=== PATIENT | female | born 2000 | race American Indian/Alaskan Native ===

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

== ENCOUNTER 2020-02-09 15:06 | Emergency (ER) | payer OTHER ==
--- NOTE | 2020-02-09 15:56 | ED ---
General Adult HPI - General Chief complaint: Shortness of Breath Stated complaint: SOB Time Seen by Provider: 02/09/20 15:31 Source: patient Mode of arrival: ambulatory Limitations: no limitations - History of Present Illness Initial comments: Patient is a 19-year-old female, , 37 week presenting to emergency Department with chief complaint of shortness of breath. Patient states that she developed sudden onset of mild shortness of breath about one hour prior to arrival. States she was watching TV whenever she developed symptoms. This is a shortness of breath is not exacerbated with ambulation. Denies any lightheadedness, dizziness, headaches, one-sided weakness or paresthesias, coughing, chest pain. Denies unilateral leg swelling. Denies previous history of blood clots, cough, hemoptysis. Patient denies any vaginal discharge, bleeding, abdominal pain or cramping. Denies hematuria, hematochezia or melena. Patient states she has history of exercise-induced asthma, however states this does not feel like it. Denies any wheezing. She has no other complaints. - Related Data Home Medications Medication Instructions Recorded Confirmed Pnv No.95/Ferrous Fum/Folic AC 1 tab PO DAILY 03/26/18 11/07/18 [ Multivitamin Tablet] Ferrous Sulfate [Feosol] 325 mg PO DAILY 08/31/18 11/07/18 Previous Rx's Medication Instructions Recorded HYDROcodone/APAP 5-325MG [Wellman 2 each PO Q4HR PRN #36 tab 11/12/18 5-325] Ibuprofen [Motrin] 600 mg PO Q6HR PRN #40 tab 11/12/18 Iron Ag/C/B12/Ca/Suc.acid/Stom 1 each PO DAILY@1200 #30 tab 11/12/18 [Multigen] Allergies Allergy/AdvReac Type Severity Reaction Status Date / Time sulfamethoxazole Allergy Rash/Hives Verified 02/09/20 15:24 [From Bactrim] trimethoprim [From Bactrim] Allergy Rash/Hives Verified 02/09/20 15:24 Review of Systems ROS Statement: Those systems with pertinent positive or pertinent negative responses have been documented in the HPI. ROS Other: All systems not noted in ROS Statement are negative. Past Medical History Past Medical History: Asthma Additional Past Medical History / Comment(s): anemia History of Any Multi-Drug Resistant Organisms: None Reported Past Surgical History: Tonsillectomy Past Anesthesia/Blood Transfusion Reactions: No Reported Reaction Past Psychological History: No Psychological Hx Reported Smoking Status: Never smoker - Past Family History Father Family Medical History: Unable to Obtain Additional Family Medical History / Comment(s): pt adopted General Exam Limitations: no limitations General appearance: alert, in no apparent distress Head exam: Present: atraumatic, normocephalic, normal inspection Eye exam: Present: normal appearance, PERRL, EOMI Pupils: Present: normal accommodation ENT exam: Present: normal exam, normal oropharynx, mucous membranes moist Neck exam: Present: normal inspection, full ROM. Absent: tenderness Respiratory exam: Present: normal lung sounds bilaterally. Absent: respiratory distress, wheezes, rales, rhonchi, stridor, chest wall tenderness, accessory muscle use Cardiovascular Exam: Present: regular rate, normal rhythm, normal heart sounds GI/Abdominal exam: Present: soft. Absent: distended, tenderness, guarding Extremities exam: Present: normal inspection, full ROM, normal capillary refill, other (+2 ulnar and radial pulses bilaterally.) Back exam: Present: normal inspection, full ROM. Absent: tenderness Neurological exam: Present: alert, oriented X3 Psychiatric exam: Present: normal affect, normal mood Skin exam: Present: warm, dry, intact, normal color Course Vital Signs 02/09/20 02/09/20 02/09/20 15:23 15:29 17:52 Temperature 98.4 F 97.6 F Pulse Rate 105 H 91 Respiratory 18 16 18 Rate Blood Pressure 139/90 113/75 O2 Sat by Pulse 99 98 Oximetry EKG Findings - EKG Comments: EKG Findings:: Q-wave and inverted T-wave in lead 3. No S wave in lead 1. Ventricular rate 102, CT 122, QRS 80, QTC 437. Medical Decision Making - Medical Decision Making Patient is a 19-year-old female, , 37 week presenting to emergency Department with a chief complaint of shortness of breath. This was sudden onset of shortness of breath at rest. On physical examination, no signs of any respiratory distress. Patient is saturating well on room air. Her vitals are stable. He should has no complaints of any vaginal discharge, abdominal cramping or pain, chest pain, diaphoretic episodes, light headedness or dizziness. EKG reveals borderline sinus tachycardia. During the ED stay, patient reported improvement of symptoms. Shared decision making was discussed regarding d-dimer and CT imaging for possible PE. Patient declined. I discussed the case with Dr. Love who is agreeable with the treatment plan. Strict return parameters were thoroughly discussed the patient was advised to immediately come to the emergency department if other symptoms appear. Disposition Clinical Impression: Shortness of breath Disposition: HOME SELF-CARE Condition: Stable Instructions (If sedation given, give patient instructions): Shortness of Breath (ED) Additional Instructions: Return to emergency department if symptoms worsen. Follow-up with the associate engineer. Is patient prescribed a controlled substance at d/c from ED?: No Referrals: Ciro Francisco DO [Primary Care Provider] - 1-2 days Time of Disposition: 17:17
[2020-02-09 17:53] VITALS: BP 113/75; PULSE 91; RESP 18; TEMP 97.6
== END 2020-02-09 17:53 | disposition home or self-care (01) ==
LOC: EC 15:06
DX: O99.513 Diseases of the respiratory system complicating pregnancy, third trimester (principal); R06.02 Shortness of breath; O99.89 Other specified diseases and conditions complicating pregnancy, childbirth and the puerperium; R00.0 Tachycardia, unspecified; Z3A.37 37 weeks gestation of pregnancy; Z88.2 Allergy status to sulfonamides; Z88.1 Allergy status to other antibiotic agents; Z79.899 Other long term (current) drug therapy
CPT/HCPCS: 99284

== ENCOUNTER 2020-02-23 05:54 | Inpatient (IN) | payer OTHER ==
[2020-02-20 10:11] VITALS: BMI 46.3
--- NOTE | 2020-02-22 22:02 | P.HPOB ---
History of Present Illness H&P Date: 02/22/20 Chief Complaint: Scheduled repeat section This is a 19 y.o. female, 2, para 1, with an estimated date of confinement of 02/27/2020, estimated gestational age of 39-3/7 weeks, who presents for repeat section. She has good movement. She complai ns of pressure but no regular contractions.. labs: GC/Chlamydia/Trich-neg Hepatitis B surface antigen-neg RPR-NR Rubella-immune Blood type-A+ Antibody screen-neg Hemoglobin-10.5 Toxoplasma-neg Random glucose-86 1 hr. GTT-118 GBS-neg OB Hx: . 1 due to failed induction. Business Practices Officer Hx: No hx STDs Social Hx: Single. Unemployed. Review of Systems Constitutional: Denies chills, Denies fever Eyes: denies blurred vision, denies pain Ears, nose, mouth and throat: Denies headache, Denies sore throat Cardiovascular: Denies chest pain, Denies shortness of breath Respiratory: Denies cough Gastrointestinal: Reports abdominal pain (irreg. ctxs) Genitourinary: Reports pelvic pain, Reports Musculoskeletal: Reports low back pain Integumentary: Denies pruritus, Denies rash Neurological: Denies numbness, Denies weakness Past Medical History Past Medical History: Asthma Additional Past Medical History / Comment(s): anemia History of Any Multi-Drug Resistant Organisms: None Reported Past Surgical History: Section, Tonsillectomy Past Anesthesia/Blood Transfusion Reactions: No Reported Reaction Past Psychological History: Anxiety Smoking Status: Never smoker Past Alcohol Use History: None Reported Past Drug Use History: None Reported - Past Family History Father Family Medical History: Unable to Obtain Additional Family Medical History / Comment(s): pt adopted Medications and Allergies Home Medications Medication Instructions Recorded Confirmed Type Pnv No.95/Ferrous Fum/Folic AC 1 tab PO DAILY 03/26/18 02/23/20 History [ Multivitamin Tablet] Ferrous Sulfate [Feosol] 325 mg PO DAILY 08/31/18 02/23/20 History Allergies Allergy/AdvReac Type Severity Reaction Status Date / Time sulfamethoxazole Allergy Rash/Hives Verified 02/23/20 06:07 [From Bactrim] trimethoprim [From Bactrim] Allergy Rash/Hives Verified 02/23/20 06:07 Exam Osteopathic Statement: *. No significant issues noted on an osteopathic structural exam other than those noted in the History and Physical/Consult. HEENT: within normal limits Heart: regular rate and rhythm Lungs: clear to auscultation bilaterally Abdomen: Cervix: closed/60%/-3 heart tones: 130's by doppler Extremities: neg. Montrell's Results Result Diagrams: 02/23/20 06:10 Assessment and Plan (1) 39 weeks gestation of Current Visit: No Status: Acute Code(s): Z3A.39 - 39 WEEKS GESTATION OF SNOMED Code(s): 94655949 (2) Previous delivery affecting Current Visit: No Status: Acute Code(s): O34.219 - MATERNAL CARE FOR UNSP TYPE SCAR FROM PREVIOUS DEL SNOMED Code(s): 084738866 Plan: Proceed with repeat section. I have discussed the risks, benefits, and alternative therapies for the above- mentioned procedure and for both sedation/anesthesia as well as necessary blood products administration, if indicated, as they pertain to this patient. The patient has indicated her understanding and acceptance of the risks and procedures discussed.
[2020-02-23] MEDS ORDERED: ALBUTEROL NEBULIZED 2.5 MG/3 ML INHALATION PRN (06:08)
[2020-02-23] MEDS ORDERED: CITRIC ACID-SODIUM CITRATE 15 ML CUP PO ONE (06:08)
[2020-02-23] MEDS ORDERED: LIDOCAINE 1% (10MG/ML) FOR IV START INTRADERMA PRN (06:08)
[2020-02-23] MEDS ORDERED: LACTATED RINGERS 1,000 ML IV ONE (06:08)
[2020-02-23 06:21] LABS: Anisocytosis Slight; Basophils % (A) 0 %; Eosinophils # (A) 0.1 k/uL (0-0.7); Eosinophils % (A) 1 %; HCT 28.8 % (34.0-46.0); HGB 8.6 gm/dL (11.4-16.0); Hypochromasia Marked; Lymphocytes # (A) 2.2 k/uL (1.0-4.8); Lymphocytes % (A) 17 %; MCH 20.3 pg (25.0-35.0); MCHC 29.9 g/dL (31.0-37.0); MCV 67.9 fL (80.0-100.0); Mean Platelet Volume 7.9; Microcytosis Marked; Monocytes # (A) 0.6 k/uL (0-1.0); Monocytes % (A) 4 %; Neutrophils # (A) 10.1 k/uL (1.3-7.7); Neutrophils % (A) 77 %; Platelet Count 307 k/uL (150-450); Poikilocytosis Slight; RBC 4.24 m/uL (3.80-5.40); RDW 16.7 % (11.5-15.5); WBC 13.1 k/uL (4.0-11.0)
[2020-02-23] MEDS ORDERED: MORPHINE SULFATE (PF) 0.3 MG/0.3 ML SYR ONE (07:41)
[2020-02-23] MEDS ORDERED: KETOROLAC 30 MG/ML 1 ML VIAL ONE (07:41)
[2020-02-23] MEDS ORDERED: ONDANSETRON 4 MG/2 ML VIAL ONE (07:41)
[2020-02-23] MEDS ORDERED: OXYTOCIN 10 UNIT/ML 1 ML VIAL ONE (07:41)
[2020-02-23] MEDS ORDERED: PHENYLEPHRINE-0.9% NACL SYG 1 MG/10 ML SYRINGE ONE (07:41)
[2020-02-23] MEDS ORDERED: DEXAMETHASONE SOD PHOSPHATE 10 MG/ML 1 ML VIAL ONE (07:41)
[2020-02-23] MEDS ORDERED: ONDANSETRON 4 MG/2 ML VIAL IVP PRN (08:12)
[2020-02-23] MEDS ORDERED: NALOXONE 0.4 MG/ML 1 ML VIAL IV PRN (08:12)
[2020-02-23] MEDS ORDERED: KETOROLAC 30 MG/ML 1 ML VIAL IVP PRN (08:12)
[2020-02-23] MEDS ORDERED: NALBUPHINE 10 MG/ML (1 ML AMP) IV PRN (08:12)
[2020-02-23] MEDS ORDERED: diphenhydrAMINE 50 MG/ML 1 ML VIAL IVP PRN ×2 (08:12→09:21)
--- NOTE | 2020-02-23 08:38 | P.OP ---
Date of Procedure: 02/23/20 Preoperative Diagnosis: 1. Intrauterine at 39-3/7 weeks. 2. History of previous section. Postoperative Diagnosis: Same Procedure(s) Performed: Repeat low transverse section Anesthesia: spinal (Duramorph) Surgeon: Mera Arroyo Public Relations Senior Associate #1: Rickie Harrington Estimated Blood Loss (ml): 500 Pathology: none sent Condition: stable Disposition: floor Indications for Procedure: This is a 19-year-old female 2 para 1 with an estimated date of confinement of 02/27/2020, estimated gestational age of 39-3/7 weeks, who presents for scheduled repeat section. I have discussed the risks, benefits, and alternative therapies for the above- mentioned procedure and for both sedation/anesthesia as well as necessary blood products administration, if indicated, as they pertain to this patient. The patient has indicated her understanding and acceptance of the risks and procedures discussed. Operative Findings: A viable male is noted in the occiput anterior lie, vertex presentation, with scores of 9 at 1 minute and 9 at 5 minutes and weight of 7 lbs. 10 oz. Normal uterus tubes and ovaries are noted. Description of Procedure: The patient is taken to the operating room where she is placed in the dorsal supine position with leftward tilt after spinal Duramorph anesthesia is given. She is prepped and draped in the normal sterile fashion. Skin was tested and found to be adequately anesthetized. A Pfannenstiel skin incision was made with a scalpel. A second knife was used to carry the incision down to the underlying layer of fascia. The fascia was nicked in the midline with a scalpel and then extended laterally bilaterally with Khan scissors. The anterior lip of the fascia was grasped with 2 Janet clamps and then dissected off the underlying rectus muscle in the midline with Khan scissors. The inferior aspect of the fascial incision was grasped with 2 Janet clamps and dissected off the underlying rectus muscle and the midline with Khan scissors. Next the peritoneum layer was tented up with 2 hemostats and then entered sharply with the scalpel. The incision is extended superiorly and inferiorly with Metzenbaum scissors. Next a DeLee retractor is placed. The vesicouterine peritoneum is entered sharply with Metzenbaum scissors and extended laterally bilaterally with Metzenbaum scissors and then the bladder flap is pushed inferiorly. The lower uterine segment is incised in transverse fashion with the scalpel and then bluntly entered with a hemostat. Clear fluid is noted. The incision was then extended laterally bilaterally with 2 fingers. Next the 's head is delivered through the incision. Nose and mouth are bulb suctioned. The remainder of the is easily delivered and placed on mother's abdomen. Cord is clamped and cut. is taken to warmer by nursing staff. Uterine fundus is gently massaged and placenta is delivered manually. Uterus is exteriorized and cleared of all clots and debris. Uterine incision is closed with 0 Vicryl suture in a running locked fashion. A second layer of 0 Vicryl suture is used in a running fashion for hemostasis. Adequate hemostasis is noted. Posterior cul-de-sac is suctioned of all clots and debris. Uterus is returned to the abdomen. Incision is noted to be hemostatic. Peritoneal layer is closed with 0 Vicryl suture in a running fashion. Muscle layer is reapproximated with 0 Vicryl suture in interrupted fashion. Fascia layer is then closed with 0 PDS suture with 2 sutures meeting in the midline and the knots buried in either side and in the midline. The subcutaneous tissue was then closed with 2-0 Vicryl suture. Skin layer was then closed with lovely. All sponge and needle counts are correct. The patient is taken to recovery room in stable condition.
[2020-02-23] MEDS ORDERED: HYDROcodone/APAP 7.5-325MG 1 EACH TAB PO PRN (09:21)
[2020-02-23] MEDS ORDERED: HYDROcodone/APAP 5-325MG 1 EACH TAB PO PRN (09:21)
[2020-02-23] MEDS ORDERED: LANOLIN CREAM 5 GM TUBE TOPICAL PRN (09:21)
[2020-02-23] MEDS ORDERED: ZOLPIDEM 5 MG TAB PO PRN (09:21)
[2020-02-23] MEDS ORDERED: OXYTOCIN 20 UNITS/1000 ML NS 1,000 ML IV SCH (09:21)
[2020-02-23] MEDS ORDERED: METOCLOPRAMIDE 5 MG/ML 2 ML VIAL IVP PRN (09:21)
[2020-02-23] MEDS ORDERED: diphenhydrAMINE 50 MG CAP PO PRN (09:21)
[2020-02-23] MEDS ORDERED: diphenhydrAMINE 25 MG CAP PO PRN (09:21)
[2020-02-23] MEDS ORDERED: SIMETHICONE 80 MG CHEWABLE PO PRN (09:21)
[2020-02-23] MEDS ORDERED: ACETAMINOPHEN TAB 325 MG TAB PO PRN (09:21)
[2020-02-23] MEDS: LACTATED RINGERS 1,000 ML IV SCH ×2 (20:24→20:26)
[2020-02-23] MEDS: SENNOSIDES-DOCUSATE SODIUM 1 EACH TAB PO SCH (20:25)
--- NOTE | 2020-02-24 06:17 | P.PN ---
Progress Note - Text Progress Note Date: 02/24/20 Patient without complaints. Ambulating without paresthesia or weakness. Denies headache or backache. Mild pruritis. Pain controlled. VSS Back - spinal site clean and dry A/P POD#1 s/p with spinal duramorph - doing well
[2020-02-24 06:21] LABS: Anisocytosis Slight; Basophils % (A) 0 %; Eosinophils # (A) 0.1 k/uL (0-0.7); Eosinophils % (A) 1 %; HCT 23.2 % (34.0-46.0); Hypochromasia Marked; Lymphocytes # (A) 2.1 k/uL (1.0-4.8); Lymphocytes % (A) 20 %; MCH 20.7 pg (25.0-35.0); MCHC 30.3 g/dL (31.0-37.0); MCV 68.2 fL (80.0-100.0); Mean Platelet Volume 7.7; Microcytosis Marked; Monocytes # (A) 0.5 k/uL (0-1.0); Monocytes % (A) 5 %; Neutrophils # (A) 7.6 k/uL (1.3-7.7); Neutrophils % (A) 72 %; Platelet Count 232 k/uL (150-450); Poikilocytosis Slight; RDW 16.7 % (11.5-15.5); WBC 10.6 k/uL (4.0-11.0)
--- NOTE | 2020-02-24 06:31 | P.PNOBGPC ---
Subjective - Subjective Principal diagnosis: Status post repeat section postoperative day #1 Interval history: Patient is doing well. She is ambulating. She is urinating without difficulty. She is not passing flatus or bowel movement yet. Baby is breast-feeding well. Patient reports: Reports appetite normal, Reports voiding normally, Reports pain well controlled, Reports ambulating normally [place]: doing well, nursing well Objective - Vital Signs Latest vital signs: Vital Signs Temp Pulse Resp BP Pulse Ox 02/24/20 04:00 98.4 F 72 18 112/52 02/24/20 00:00 98.1 F 132 H 32 H 02/23/20 20:00 98.6 F 75 18 111/58 02/23/20 17:00 16 98 02/23/20 16:00 97.9 F 82 16 126/78 99 02/23/20 15:00 16 02/23/20 13:12 98 02/23/20 13:00 16 02/23/20 12:00 98 F 140 H 40 H 02/23/20 11:12 16 02/23/20 10:30 88 16 118/68 98 02/23/20 10:00 73 16 121/73 100 02/23/20 09:30 97.7 F 87 16 110/73 100 02/23/20 09:15 79 16 112/73 98 02/23/20 09:12 16 99 02/23/20 09:00 86 16 107/67 99 02/23/20 08:45 100 16 113/71 97 02/23/20 08:30 96.9 F L 89 16 112/58 96 02/23/20 08:12 16 Intake and Output 02/23/20 02/23/20 02/24/20 14:59 22:59 06:59 Output Total 150 400 650 Balance -150 -400 -650 Output: Urine 100 400 650 Emesis 50 Other: Voiding Method Indwelling Catheter Indwelling Catheter Indwelling Catheter - Exam Extremities: Present: normal. Absent: tenderness, edema Abdomen: Present: normal appearance, soft (Positive bowel sounds 4). Absent: distention, tenderness Incision: Present: normal, dry, intact. Absent: erythematous Uterus: Present: normal, firm. Absent: tenderness Assessment and Plan Assessment: Status post repeat section postoperative day #1 (1) 39 weeks gestation of Current Visit: No Status: Acute Code(s): Z3A.39 - 39 WEEKS GESTATION OF SNOMED Code(s): 94700040 (2) Previous delivery affecting Current Visit: No Status: Acute Code(s): O34.219 - MATERNAL CARE FOR UNSP TYPE SCAR FROM PREVIOUS DEL SNOMED Code(s): 849131310 Plan: Continue with postoperative and care. Anticipate possible discharge home tomorrow.
[2020-02-24] MEDS: SENNOSIDES-DOCUSATE SODIUM 1 EACH TAB PO SCH ×2 (08:12→20:12)
[2020-02-24] MEDS: FERROUS SULFATE 325 MG TAB PO SCH (08:12)
[2020-02-24] MEDS: IBUPROFEN 600 MG TAB PO PRN ×3 (08:12→20:12)
[2020-02-24] MEDS ORDERED: PRENATAL VIT-IRON-FOLIC ACID 1 EACH CAP PO SCH (09:00)
[2020-02-24 20:29] VITALS: RESP 16
[2020-02-25] MEDS: IBUPROFEN 600 MG TAB PO PRN (05:02)
--- NOTE | 2020-02-25 07:14 | P.PNOBGPC ---
Subjective - Subjective Patient reports: Reports appetite normal, Reports voiding normally, Reports pain well controlled, Reports ambulating normally : doing well Objective - Vital Signs Latest vital signs: Vital Signs Temp Pulse Resp BP Pulse Ox 02/24/20 23:58 98.3 F 92 16 113/75 02/24/20 20:00 98.0 F 92 16 117/79 97 02/24/20 15:26 98.3 F 102 H 18 129/70 02/24/20 08:00 98.0 F 85 16 107/61 Intake and Output 02/24/20 02/25/20 02/25/20 22:59 06:59 14:59 Other: # Voids 1 - Exam Lungs: bilateral: normal Chest: Normal S1, Normal S2 Extremities: Present: normal Abdomen: Present: normal appearance, soft. Absent: distention, tenderness Incision: Present: normal, dry, intact Uterus: Present: normal, firm Assessment and Plan Assessment: Postoperative day #2. Patient is resting without complaints wishes to go home. Vital signs are stable she's afebrile. Uterus is firm nontender and her incision is intact and dry. Hemoglobin noted yesterday was 7.0 but her preoperative hemoglobin was only 8.6. Patient has chronic anemia and is on iron. Patient is tolerating regular diet, ambulating, urinating without difficulty. My impression is a normal course with the exception of chronic anemia which she tolerates well. Patient appears to be stable for discharge home follow up with Dr. Arroyo as scheduled. (1) delivery delivered Current Visit: No Status: Acute Code(s): O82 - ENCOUNTER FOR DELIVERY WITHOUT INDICATION SNOMED Code(s): 742831253 (2) Chronic anemia Current Visit: Yes Status: Acute Code(s): D64.9 - ANEMIA, UNSPECIFIED SNOMED Code(s): 671709634
--- NOTE | 2020-02-25 07:17 | P.DS ---
Providers Date of admission: 02/23/20 05:54 Expected date of discharge: 02/25/20 Attending physician: Mera Arroyo Primary care physician: Stated None - Discharge Diagnosis(es) (1) delivery delivered Current Visit: No Status: Acute (2) Chronic anemia Current Visit: Yes Status: Acute Hospital Course: Please see dictated H&P per Dr. Arroyo on this patient's admission. Brief summary this is a 19-year-old 2 para 1 female 39-3/7 weeks gestation admitted to labor and delivery for elective repeat section. Patient underwent above-named surgery for viable male . Please see dictated operative note. Of note the patient's admission hemoglobin was 8.6. Postoperative patient did well and on postoperative #2 was felt be stable for discharge home her hemoglobin on postoperative 1 was 7.0. Patient is asymptomatic. Patient was discharged home with instructions to do no heavy lifting and continue her iron therapy. Procedures: Repeat low transverse section Patient Condition at Discharge: Good Plan - Discharge Summary Discharge Rx Participant: Yes New Discharge Prescriptions: New Ibuprofen [Motrin] 600 mg PO Q6HR PRN #60 tab PRN Reason: Mild Pain Or Fever >= 100.5 HYDROcodone/APAP 5-325MG [[place] 5-325] 1 each PO Q4HR PRN #30 tab PRN Reason: Moderate Pain Continue Pnv No.95/Ferrous Fum/Folic AC [ Multivitamin Tablet] 1 tab PO DAILY Ferrous Sulfate [Iron (65 MG Elemental)] 325 mg PO DAILY Discharge Medication List Pnv No.95/Ferrous Fum/Folic AC [ Multivitamin Tablet] 1 tab PO DAILY 03/26/18 [History] Ferrous Sulfate [Iron (65 MG Elemental)] 325 mg PO DAILY 08/31/18 [History] HYDROcodone/APAP 5-325MG [[place] 5-325] 1 each PO Q4HR PRN #30 tab 02/24/20 [Rx] Ibuprofen [Motrin] 600 mg PO Q6HR PRN #60 tab 02/24/20 [Rx] Follow up Appointment(s)/Referral(s): Mera Arroyo DO [Doctor of Osteopathic Medicine] - 2 Weeks Activity/Diet/Wound Care/Special Instructions: Instructions 1. Do not begin any exercise program for 3 weeks. 2. Do not resume sexual relations for 3 weeks or longer if uncomfortable. 3. You may take tub baths or showers at any time. 4. You may use tampons if desired after 3 weeks. 5. Keep the area of episiotomy (stitches) clean and dry. 6. If you are not nursing, wear a good fitting, supportive bra during the day and limit fluid intake for at least 1 week to prevent breast engorgement. 7. Call the office, [phone], within the next week to make appointment for your 6 week checkup if it has not already been made. 8. Report any of the following occurrences to the doctor promptly: a. Heavy, excessive bleeding b. Chills, fever c. Burning or frequency of urination d. Pain or redness and breasts if nursing e. Increasing pain or swelling in episiotomy (stitches). In addition to the above instructions, the following additional should be followed: 1. No heavy lifting or straining (exercising) until after 6 week checkup. 2. Keep abdominal incision clean and dry: You may wear a dressing if more comfortable. 3. Make office appointment for 10 days after going home or as instructed by her doctor. Discharge Disposition: HOME SELF-CARE
[2020-02-25 08:47] VITALS: BP 117/78; PULSE 85; TEMP 98.4
[2020-02-25] MEDS: SENNOSIDES-DOCUSATE SODIUM 1 EACH TAB PO SCH (08:47)
[2020-02-25] MEDS: FERROUS SULFATE 325 MG TAB PO SCH (08:58)
== END 2020-02-25 12:34 | disposition home or self-care (01) | DRG 788 ==
LOC: 4FBP 05:54
PROVIDERS: ADMIT Obstetrics & Gynecology; ATTEND Obstetrics & Gynecology
PROC: 10D00Z1 Extraction of Products of Conception, Low, Open Approach (ICD-10-PCS; principal; 2020-02-23 08:00)
DX: O34.211 Maternal care for low transverse scar from previous cesarean delivery (principal); O99.02 Anemia complicating childbirth; D64.9 Anemia, unspecified; L29.9 Pruritus, unspecified; O99.72 Diseases of the skin and subcutaneous tissue complicating childbirth; Z86.59 Personal history of other mental and behavioral disorders; Z87.09 Personal history of other diseases of the respiratory system; Z37.0 Single live birth; Z3A.39 39 weeks gestation of pregnancy
CPT/HCPCS: 85025; 86850; 86900; 86901

== ENCOUNTER 2020-06-29 18:14 | Inpatient (IN) | payer MEDICAID, OTHER ==
--- NOTE | 2020-06-29 18:54 | ED ---
General Adult HPI - General Chief complaint: Psychiatric Symptoms Stated complaint: depression Time Seen by Provider: 06/29/20 18:20 Source: patient, family, RN notes reviewed, old records reviewed Mode of arrival: ambulatory Limitations: no limitations - History of Present Illness Initial comments: 19-year-old female presenting for mental health evaluation. Patient states she's had worsening depression and thoughts that she does not want to live anymore. She denies suicide attempt or self-harm. Patient was previously treated with medication andhas seen a therapist. She is not currently on medication for depression or anxiety. No physical complaints. - Related Data Home Medications Medication Instructions Recorded Confirmed Pnv No.95/Ferrous Fum/Folic AC 1 tab PO DAILY 03/26/18 02/23/20 [ Multivitamin Tablet] Ferrous Sulfate [Iron (65 MG 325 mg PO DAILY 08/31/18 02/23/20 Elemental)] Previous Rx's Medication Instructions Recorded HYDROcodone/APAP 5-325MG [[place] 1 each PO Q4HR PRN #30 tab 02/24/20 5-325] Ibuprofen [Motrin] 600 mg PO Q6HR PRN #60 tab 02/24/20 Allergies Allergy/AdvReac Type Severity Reaction Status Date / Time sulfamethoxazole Allergy Rash/Hives Verified 06/29/20 18:19 [From Bactrim] trimethoprim [From Bactrim] Allergy Rash/Hives Verified 06/29/20 18:19 Review of Systems ROS Statement: Those systems with pertinent positive or pertinent negative responses have been documented in the HPI. ROS Other: All systems not noted in ROS Statement are negative. Past Medical History Past Medical History: Asthma Additional Past Medical History / Comment(s): anemia History of Any Multi-Drug Resistant Organisms: None Reported Past Surgical History: Section, Tonsillectomy Past Anesthesia/Blood Transfusion Reactions: No Reported Reaction Past Psychological History: Anxiety, Depression Smoking Status: Never smoker Past Alcohol Use History: None Reported Past Drug Use History: None Reported - Past Family History Father Family Medical History: Unable to Obtain Additional Family Medical History / Comment(s): pt adopted General Exam Limitations: no limitations General appearance: alert, in no apparent distress Head exam: Present: atraumatic, normocephalic Eye exam: Present: normal appearance, PERRL ENT exam: Present: normal exam Neck exam: Present: normal inspection. Absent: tenderness, meningismus Respiratory exam: Present: normal lung sounds bilaterally. Absent: respiratory distress Cardiovascular Exam: Present: regular rate, normal rhythm GI/Abdominal exam: Present: soft. Absent: distended, tenderness, guarding Extremities exam: Present: normal inspection Neurological exam: Present: alert, oriented X3, CN II-XII intact. Absent: motor sensory deficit Psychiatric exam: Present: depressed, anxious, flat affect, suicidal ideation Skin exam: Present: warm, dry, intact Course Vital Signs 06/29/20 18:17 Temperature 97.4 F L Pulse Rate 91 Respiratory 20 Rate Blood Pressure 155/94 O2 Sat by Pulse 99 Oximetry Medical Decision Making - Medical Decision Making 19-year-old female presenting for mental health evaluation. Patient has been medically cleared, she has been evaluated by EPS and will be admitted to this institution for further psychiatric evaluation and treatment. Disposition Clinical Impression: Depression, Suicidal ideation Disposition: ADMITTED IP TO THIS [facility] Condition: Stable Is patient prescribed a controlled substance at d/c from ED?: No Referrals: Ciro Francisco DO [Primary Care Provider] - 1-2 days Decision to Admit Reason: Admit from EC Decision Date: 06/29/20 Decision Time: 20:23
[2020-06-29] MEDS ORDERED: MAGNESIUM HYDROXIDE 2,400 MG/10 ML CUP PO PRN (20:39)
[2020-06-29] MEDS ORDERED: ZIPRASIDONE 20 MG VIAL IM PRN (20:39)
[2020-06-29] MEDS ORDERED: LORazepam 1 MG TAB PO PRN (20:39)
[2020-06-29] MEDS ORDERED: ACETAMINOPHEN TAB 325 MG TAB PO PRN (20:39)
[2020-06-29] MEDS ORDERED: MAG HYDROX/AL HYDROX/SIMETH 30 ML CUP PO PRN (20:39)
[2020-06-29] MEDS ORDERED: LORazepam 2 MG/ML INJ IM PRN (20:44)
[2020-06-29 23:37] LABS: Amorphous Sediment,Urine Occasional /hpf; Appearance,Urine Turbid (Clear); Bilirubin,Urine Negative (Negative); Blood,Urine Small (Negative); Color,Urine Yellow; Glucose,Urine (UA) Negative (Negative); Ketones,Urine 2+ (Negative); Leukocyte Esterase,Urine Moderate (Negative); Nitrite,Urine Negative (Negative); PH, Urine 5.5 (5.0-8.0); Protein,Urine Trace (Negative); Specific Gravity,Urine 1.033 (1.001-1.035)
--- NOTE | 2020-06-30 02:06 | P.MDCNMH ---
History of Present Illness H&P Date: 06/29/20 Chief Complaint: medical evaluation 19-year-old female with anxiety and depression She comes in due to suicidal ideation and overwhelming depression, she denies being on any prescription medications for mental health. She is not sure what precipitated this episode. She denied any suicidal attempt denied hearing voices. She denies any medical complaints or concerns at this time denies any chest pain fevers coughing shortness of breath nausea vomiting abdominal pain diarrhea or urinary changes Review of Systems Pertinent positives as noted in HPI. All other systems were reviewed and are negative Past Medical History Past Medical History: Asthma Additional Past Medical History / Comment(s): Chronic Anemia. History of Any Multi-Drug Resistant Organisms: None Reported Past Surgical History: Section, Tonsillectomy Additional Past Surgical History / Comment(s): 2 Sections Past Anesthesia/Blood Transfusion Reactions: No Reported Reaction Past Psychological History: Anxiety, Depression Smoking Status: Never smoker Past Alcohol Use History: None Reported Additional Past Alcohol Use History / Comment(s): Pt. denies current drug and alcohol use. She also denies any past history of alcohol or drug use. BAT 0 Past Drug Use History: None Reported Additional Drug Use History / Comment(s): UDS not yet collected at this time. BAT 0 - Past Family History Father Family Medical History: Unable to Obtain Additional Family Medical History / Comment(s): Patient was adopted as a . She does not know her family history. Medications and Allergies Home Medications Medication Instructions Recorded Confirmed Type No Known Home Medications 06/29/20 06/29/20 History Allergies Allergy/AdvReac Type Severity Reaction Status Date / Time sulfamethoxazole Allergy Rash/Hives Verified 06/29/20 21:07 [From Bactrim] trimethoprim [From Bactrim] Allergy Rash/Hives Verified 06/29/20 21:07 Physical Exam Vitals: Vital Signs Temp Pulse Pulse Resp BP BP Pulse Ox 06/29/20 21:28 98.6 F 83 16 122/79 97 06/29/20 18:17 97.4 F L 91 20 155/94 99 Intake and Output 06/29/20 06/29/20 06/30/20 14:59 22:59 06:59 Other: Weight 112.037 kg Constitutional: No acute distress, conversant, pleasant Eyes: Anicteric sclerae, moist conjunctiva, Pupils equal round reactive to light ENMT: NC/AT Oropharynx clear, no erythema, or exudates Neck: Supple, FROM, no masses, or JVD No carotid bruits No thyromegaly Lungs: Clear to auscultation Clear to percussion Normal respiratory effort, no accessory muscle use Cardiovascular: Heart regular in rate and rhythm, No murmurs, gallops, or rubs No peripheral edema Abdominal: Soft Nontender, no guarding, rebound or rigidity Abdomen moving with respiration Normoactive bowel sounds No hepatomegaly, No splenomegaly No palpable mass No abdominal wall hernia noted Skin: Normal temperature, tone, texture, turgor No induration No subcutaneous nodules No rash, lesions No ulcers Extremities: No digital cyanosis No clubbing Pedal pulses intact and symmetrical Radial pulses intact and symmetrical No calf tenderness Psychiatric: Alert and oriented to person, place and time Appropriate affect fair judgement Neuro Muscles Strength 5/5 in all 4 extremities Sensation to light touch grossly present throughout Cranial nerves II-XII grossly intact No focal sensory deficits Lymphatics: no palpable cervical or supraclavicular , or inguinal lymph nodes Cranial Nerve Examination - Cranial Nerves Cranial Nerve II- Optic: Intact Cranial Nerve III- Oculomotor: Intact Cranial Nerve IV- Trochlear: Intact Cranial Nerve V- Trigeminal: Intact Cranial Nerve - Abducens: Intact Cranial Nerve VII- Facial: Intact Cranial Nerve VIII- Auditory: Intact Cranial Nerve IX- Glossopharyngeal: Intact Cranial Nerve X- Vagus: Intact Cranial Nerve XI- Accessory: Intact Cranial Nerve XII- Hypoglossal: Intact Results Labs: Abnormal Lab Results - Last 24 Hours (Table) 06/29/20 Range/Units 20:40 Urine Appearance Turbid H (Clear) Urine Protein Trace H (Negative) Urine Ketones 2+ H (Negative) Urine Blood Small H (Negative) Ur Leukocyte Esterase Moderate H (Negative) Amorphous Sediment Occasional H (None) /hpf Assessment and Plan Assessment: Depression and suicidal ideation Management per psych Obesity Counseled regarding lifestyle modification and weight loss Follow-up labs Thank you for allowing us to participate in the care of this patient. We will follow peripherally. Do not hesitate to contact us with questions. Someone can be reached from the [facility] hospitalist group at all hours of the day at [phone].
[2020-06-30 04:22] LABS: Urine Alcohol Negative (Negative); Urine Barbiturate Negative (Negative); Urine Cocaine Negative (Negative); Urine Methadone Negative (Negative); Urine Opiates Negative (Negative); Urine Phencyclidine Negative (Negative)
[2020-06-30 08:15] LABS: Basophils % (A) 0 %; Eosinophils # (A) 0.1 k/uL (0-0.7); Eosinophils % (A) 1 %; HCT 33.6 % (34.0-46.0); HGB 9.7 gm/dL (11.4-16.0); Hypochromasia Marked; Lymphocytes # (A) 2.2 k/uL (1.0-4.8); Lymphocytes % (A) 30 %; MCH 20.4 pg (25.0-35.0); MCHC 28.8 g/dL (31.0-37.0); MCV 70.6 fL (80.0-100.0); Microcytosis Moderate; Monocytes # (A) 0.3 k/uL (0-1.0); Monocytes % (A) 4 %; Neutrophils # (A) 4.6 k/uL (1.3-7.7); Neutrophils % (A) 63 %; Platelet Count 321 k/uL (150-450); RBC 4.76 m/uL (3.80-5.40); RDW 15.8 % (11.5-15.5); WBC 7.2 k/uL (4.0-11.0)
[2020-06-30 08:22] LABS: ALT 16 U/L (4-34); AST 22 U/L (14-36); African American GFR (CKD) >90 (>60 ml/min/1.73 sqM); Albumin 4.1 g/dL (3.5-5.0); Alkaline Phosphatase 83 U/L (38-126); Anion Gap 6 mmol/L; Blood Urea Nitrogen 10 mg/dL (7-17); Calcium 9.3 mg/dL (8.4-10.2); Carbon Dioxide 28 mmol/L (22-30); Chloride 108 mmol/L (98-107); Cholesterol 119 mg/dL (<200); Glucose 95 mg/dL (74-99); HDL Cholesterol 39 mg/dL (40-60); LDL Cholesterol,Calculated 67 mg/dL (0-99); Non-African American GFR(CKD) >90 (>60 ml/min/1.73 sqM); Potassium 3.4 mmol/L (3.5-5.1); Sodium 142 mmol/L (137-145); Total Bilirubin 0.9 mg/dL (0.2-1.3); Total Protein 7.5 g/dL (6.3-8.2); Triglycerides 66 mg/dL (<150)
[2020-06-30 13:08] LABS: Hemoglobin A1C 5.4 % (4.0-6.0)
--- NOTE | 2020-06-30 17:13 | P.HP ---
Psychiatric H&P - . H&P Date: 06/30/20 History & Physical: Allergies Allergy/AdvReac Type Severity Reaction Status Date / Time sulfamethoxazole Allergy Rash/Hives Verified 06/29/20 21:07 [From Bactrim] trimethoprim [From Bactrim] Allergy Rash/Hives Verified 06/29/20 21:07 Vital Signs Temp 97.5 F L 06/30/20 13:00 Pulse 92 06/30/20 06:59 Resp 14 06/30/20 06:59 BP 118/58 06/30/20 06:59 Pulse Ox 97 06/29/20 21:28 Intake & Output 06/29/20 06/30/20 06/30/20 18:59 06:59 18:59 Weight 112.945 kg 112.037 kg Laboratory Last Values WBC 7.2 k/uL (4.0-11.0) 06/30/20 07:35 RBC 4.76 m/uL (3.80-5.40) 06/30/20 07:35 Hgb 9.7 gm/dL (11.4-16.0) L 06/30/20 07:35 Hct 33.6 % (34.0-46.0) L 06/30/20 07:35 MCV 70.6 fL (80.0-100.0) L 06/30/20 07:35 MCH 20.4 pg (25.0-35.0) L 06/30/20 07:35 MCHC 28.8 g/dL (31.0-37.0) L 06/30/20 07:35 RDW 15.8 % (11.5-15.5) H 06/30/20 07:35 Plt Count 321 k/uL (150-450) 06/30/20 07:35 Neutrophils % 63 % 06/30/20 07:35 Lymphocytes % 30 % 06/30/20 07:35 Monocytes % 4 % 06/30/20 07:35 Eosinophils % 1 % 06/30/20 07:35 Basophils % 0 % 06/30/20 07:35 Neutrophils # 4.6 k/uL (1.3-7.7) 06/30/20 07:35 Lymphocytes # 2.2 k/uL (1.0-4.8) 06/30/20 07:35 Monocytes # 0.3 k/uL (0-1.0) 06/30/20 07:35 Eosinophils # 0.1 k/uL (0-0.7) 06/30/20 07:35 Basophils # 0.0 k/uL (0-0.2) 06/30/20 07:35 Hypochromasia Marked 06/30/20 07:35 Microcytosis Moderate 06/30/20 07:35 Sodium 142 mmol/L (137-145) 06/30/20 07:35 Potassium 3.4 mmol/L (3.5-5.1) L 06/30/20 07:35 Chloride 108 mmol/L (98-107) H 06/30/20 07:35 Carbon Dioxide 28 mmol/L (22-30) 06/30/20 07:35 Anion Gap 6 mmol/L 06/30/20 07:35 BUN 10 mg/dL (7-17) 06/30/20 07:35 Creatinine 0.68 mg/dL (0.52-1.04) 06/30/20 07:35 Est GFR (CKD-EPI)AfAm >90 (>60 ml/min/1.73 sqM) 06/30/20 07:35 Est GFR (CKD-EPI)NonAf >90 (>60 ml/min/1.73 sqM) 06/30/20 07:35 Glucose 95 mg/dL (74-99) 06/30/20 07:[address] Glu mg/dL 108 06/30/20 07:35 Hemoglobin A1c 5.4 % (4.0-6.0) 06/30/20 07:35 Calcium 9.3 mg/dL (8.4-10.2) 06/30/20 07:35 Total Bilirubin 0.9 mg/dL (0.2-1.3) 06/30/20 07:35 AST 22 U/L (14-36) 06/30/20 07:35 ALT 16 U/L (4-34) 06/30/20 07:35 Alkaline Phosphatase 83 U/L (38-126) 06/30/20 07:35 Total Protein 7.5 g/dL (6.3-8.2) 06/30/20 07:35 Albumin 4.1 g/dL (3.5-5.0) 06/30/20 07:35 Triglycerides 66 mg/dL (<150) 06/30/20 07:35 Cholesterol 119 mg/dL (<200) 06/30/20 07:35 LDL Cholesterol, Calc 67 mg/dL (0-99) 06/30/20 07:35 HDL Cholesterol 39 mg/dL (40-60) L 06/30/20 07:35 TSH 1.390 mIU/L (0.465-4.680) 06/30/20 07:35 Urine Color Yellow 06/29/20 20:40 Urine Appearance Turbid (Clear) H 06/29/20 20:40 Urine pH 5.5 (5.0-8.0) 06/29/20 20:40 Ur Specific Kersey 1.033 (1.001-1.035) 06/29/20 20:40 Urine Protein Trace (Negative) H 06/29/20 20:40 Urine Glucose (UA) Negative (Negative) 06/29/20 20:40 Urine Ketones 2+ (Negative) H 06/29/20 20:40 Urine Blood Small (Negative) H 06/29/20 20:40 Urine Nitrite Negative (Negative) 06/29/20 20:40 Urine Bilirubin Negative (Negative) 06/29/20 20:40 Urine Urobilinogen 2.0 mg/dL (<2.0) 06/29/20 20:40 Ur Leukocyte Esterase Moderate (Negative) H 06/29/20 20:40 Amorphous Sediment Occasional /hpf (None) H 06/29/20 20:40 Urine HCG, Qual Not Detected (Not Detectd) 06/29/20 20:40 Urine Opiates Screen Negative ng/mL (Negative) 06/29/20 20:39 Urine Methadone Screen Negative ng/mL (Negative) 06/29/20 20:39 Ur Propoxyphene Screen Negative ng/mL (Negative) 06/29/20 20:39 Urine Barbiturates Negative ng/mL (Negative) 06/29/20 20:39 Ur Phencyclidine Scrn Negative ng/mL (Negative) 06/29/20 20:39 Ur Amphetamine Screen Negative ng/mL (Negative) 06/29/20 20:39 U Benzodiazepines Scrn Negative ng/mL (Negative) 06/29/20 20:39 Urine Cocaine Screen Negative ng/mL (Negative) 06/29/20 20:39 U Cannabinoids Screen Positive ng/mL (Negative) A 06/29/20 20:39 Urine Alcohol Negative mg/dL (Negative) 06/29/20 20:39 06/30/20 16:35 HPI:19-year-old female with anxiety and depression She comes in due to suicidal ideation and overwhelming depression, she denies being on any prescription medications for mental health. She is not sure what precipitated this episode. She denied any suicidal attempt denied hearing voices. She denies any medical complaints or concerns at this time denies any chest pain fevers coughing shortness of breath nausea vomiting abdominal pain diarrhea or urinary changes Past Psychiatric: About 4 years ago she was real anxious and took Zoloft of unknown amount and duration but felt it did not work so stopped it and has not been to counseling or taken other medications or drugs but just toughed it through. Social history: She was adopted and has heard that her mother used drugs but knows nothing else. Her adoptive family had two biological children and four adopted and she is the youngest. She is very positive about them and is currently living with them. She was with her fiancee for several years and has two boys with him ages one and a half and 4 months. He was promiscuous and irrisponsible and abandoned them after her son was born. She has been struggling with increased depression for the last four months. She is very anxious and irritable and also cant concentrate or motivate. 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 She has two associates in education and art. She has no experience and no legal problems. Past Medical History: Asthma Additional Past Medical History / Comment(s): Chronic Anemia. History of Any Multi-Drug Resistant Organisms: None Reported Past Surgical History: Section, Tonsillectomy Additional Past Surgical History / Comment(s): 2 Sections Past Anesthesia/Blood Transfusion Reactions: No Reported Reaction Past Psychological History: Anxiety, Depression Smoking Status: Never smoker Past Alcohol Use History: None Reported Additional Past Alcohol Use History / Comment(s): Pt. denies current drug and alcohol use. She also denies any past history of alcohol or drug use. BAT 0 Past Drug Use History: None Reported Additional Drug Use History / Comment(s): UDS not yet collected at this time. BAT 0 Mental status: She is quiet, slow to respond, poor eye contact, affect is sad, she can't sleep, ruminates on negatives constantly, denies any psychotic symptoms but does feel hopeless, overwhelmed and suicidal and does want to take medications to help and get into counseling, gait and statiion are normal, self care is adequate , she has lost a couple pounds due to poor appetite but is overweight and does not want to gain. She could remember 3 of 3 objects after 3 min. She could name the last 4 presidents, and 3 of [place], she forgot fernandes [employer], cats and snakes both hiss and have tongues and eyes, she knew the words carnivore, herbivore and omnivore and figured out that vore meant eater.She is above average in IQ but too slowed down to functions ASSESSMENT: Major depression recurrent severe nonpsychotic PLAN: Cymbalta 30mg trazodone 50 mg and melatonin 5 mg then go to groups and classes and identify how she has gotten herself so burned out
[2020-06-30] MEDS: MELATONIN 5 MG TABLET PO SCH (21:07)
[2020-06-30] MEDS: traZODone HCL 50 MG TAB PO SCH (21:07)
[2020-07-01] MEDS: DULoxetine HCL 30 MG CAPSULE.DR PO SCH (08:44)
--- NOTE | 2020-07-01 12:19 | P.PN ---
Subjective Progress Note Date: 07/01/20 Principal diagnosis: Major depression recurrent severe nonpsychotic SUBJECTIVE:I was able to sleep last night and that felt good. She does not want to increase the medications for insomnia OBJECTIVE: Vital signs: temp 98.1 resp 16 heart rate 82 blood pressure 120/56 Labs:She is anemic with hct of 33.6, general chem her potassium is low at 3.4 urine shows 2 plus ketones probably from not eating as her sugar is fine, drug screen pos for marijuana STAFF REPORT:group, she attends and needs to be prompted but is cooperative. She denies suicidal ideas anymore but has no clear plans or goals. She finds raising two little boys to be overwhelming and then feels guilty which feeds the depression and makes it harder to raise two boys. MENTAL STATUS: Appearance: basic ADL'S adequate Gait and station:normal Speech:soft and slow Eye contact: poor Behavior: cooperative Affect:sad No evidence or acknowledgment of voices or delusions Orientation: good to person place and time MEDICATIONS:Cymbalta 30 Trazodone 50 Melatonin 5 ASSESSMENT:patient is cooperative and still too slowed down and hopeless PLAN: no change Objective - Vital Signs Vital signs: Vital Signs Temp 98.1 F 07/01/20 06:46 Pulse 82 07/01/20 06:46 Resp 16 07/01/20 06:46 BP 120/56 07/01/20 06:46 Pulse Ox 97 06/29/20 21:28 Intake & Output 06/30/20 07/01/20 07/01/20 19:59 06:59 18:59 Weight 113.2 kg - Labs CBC & Chem 7: 06/30/20 07:35 06/30/20 07:35
[2020-07-01] MEDS: MELATONIN 5 MG TABLET PO SCH (21:21)
[2020-07-01] MEDS: traZODone HCL 50 MG TAB PO SCH (21:21)
[2020-07-02 06:29] VITALS: PULSE 80
[2020-07-02] MEDS: DULoxetine HCL 30 MG CAPSULE.DR PO SCH (08:19)
[2020-07-02] MEDS: FERROUS SULFATE 325 MG TAB PO SCH ×3 (08:19→16:58)
--- NOTE | 2020-07-02 12:19 | P.PN ---
Progress Note - Text Progress Note Date: 07/02/20 Clinical Problems: Major depressive disorder recurrent severe without psychotic features, rule out borderline personality disorder Interim history: I reviewed the medical record, interviewed the patient and discussed her treatment and treatment plan during team meeting. She is a 19-year-old female admitted to the psychiatric unit voluntarily with complaints of increasing depression and anxiety. She reported a long history of depression beginning at age 12. She is currently engaged with outpatient mental health services through [facility]. She reported worsening depression beginning after her fianc and father of her two children abruptly abruptly left. She stated during an argument he told her that he "can't take this anymore" and moved in with his mother. She was left to take care of their 4-month-old and [id number] children. She lives with her parents who are supportive. He has refused to speak with her since he left and has not contributed financially for their children. She described continued feelings depression and anxiety that have decreased "somewhat" since her admission the unit. Most promptly her sleep has improved with the current psychotropic medications. She denied feeling hopeless or helpless and talked about future plans including returning to schooland finding work to support her and her children. Mental status exam: she presented as a casually groomed 19-year-old female who was pleasant on approach. She made eye contact and attended to the interview. She had a blunted facial expression. She has slight psychomotor retardation but no abnormal movements. Her speech was spontaneous with decreased rate and rhythm. Her affect was depressed. She denied suicidal ideation or wishes. She denied feeling hopeless or helpless. She ruminated about the circumstances that led to this hospitalization and particularly abandonment by the father of her two children. She did not express ideas reference, paranoid ideation or delusions. Her thinking was abstract and associations were coherent and logical. Assessment: She presented unit with the worsening depression in the context of a clear and significant stressful event. She has fully engage in treatment and has posed no management problem. Plan: continue inpatient treatment. Continue current psychotropic medications- Cymbalta 30 mg daily, melatonin 5 mg at bedtime and trazodone 50 mg at bedtime. Continue Geodon 20 mg IM twice a day when necessary for agitation and aggression and Ativan 1 mg by mouth/IM when necessary for agitation or anxiety. Encourage participation in therapeutic groups and activities. Evaluate clinical status and response to treatment on a daily basis.
[2020-07-02] MEDS: MELATONIN 5 MG TABLET PO SCH (21:20)
[2020-07-02] MEDS: traZODone HCL 50 MG TAB PO SCH (21:20)
[2020-07-03 06:32] VITALS: BP 104/48; RESP 15; TEMP 98.2
[2020-07-03] MEDS: DULoxetine HCL 30 MG CAPSULE.DR PO SCH (08:37)
[2020-07-03] MEDS: FERROUS SULFATE 325 MG TAB PO SCH ×2 (08:37→12:04)
--- NOTE | 2020-07-03 11:41 | P.DS ---
Providers Date of admission: 06/29/20 20:35 Attending physician: Alejandro Srivastava MD Consults: 06/29/20 20:39 Consult Physician Routine Consulting Provider: Jessi Berry Consult Reason/Comments: medical management Do you want consulting provider notified?: Yes Primary care physician: Ciro Francisco - Discharge Diagnosis(es) (1) Major depressive disorder, recurrent, severe without psychotic behavior Current Visit: Yes Status: Acute Priority: High (2) Relationship problem between partners Current Visit: Yes Status: Acute Priority: High Hospital Course: HISTORY: She is a 19-year-old female admitted to the psychiatric unit voluntarily with complaints of increasing depression and anxiety. She reported a long history of depression beginning at age 12. She is currently engaged with outpatient mental health services through [facility]. She reported worsening depression beginning after her fianc and father of her two children abruptly abruptly left. She stated during an argument he told her that he "can't take this anymore" and moved in with his mother. She was left to take care of their 4-month-old and [id number] children. She lives with her parents who are supportive. He has refused to speak with her since he left and has not contributed financially for their children. She presented to ER with complaints of feeling overwhelmed. She is unable to sleep and his chronic persistent restlessness, anxiety and for furnace. She described passive suicidal thoughts where she just wanted to " get over with." She denied specific plan or intent. if she denied psychotic symptoms such as hallucinations, paranoia or thought disturbances.She denied the use of drugs with the exception of marijuana. Her UDS was positive only for Cannabinoids. His urine alcohol was negative. HOSPITAL COURSE: We admitted her to psychiatric unit voluntarily initially under the care of Dr. Chung. We provided a comprehensive biopsychosocial assessment. The retail client solutions consultant procurement clerk completed initial physical exam and medical history and diagnosis obesity and iron deficiency(hemoglobin 9.7 and hematocrit 33.6).. He prescribed errous sulfate 225 mg by mouth 3 times a day with meals. We treated her depression and anxiety with a combination of Cymbalta 30 mg daily, Desyrel 50 mg at bedtime and melatonin 5 mg at bedtime. She reported a marked improvement in her moodafter starting these medications. She also reported a marked improvement in sleep. She participated in therapeutic groups and activities. She posed no management problems had no episodes behavioral dyscontrol. She plans to continue with outpatient treatment. MENTAL STATUS ON DISCHARGE: She presented as a stocky 19-year-old female who was pleasant on approach. She made eye contact and attended to interview. She had no distinguishing features or prominent physical modalities. She had a blunted but bright facial expression. She was alert and oriented to person, place and time. She had slight psychomotor retardation but no abnormal involuntary movements. Her speech was slow with decreased rhythm. Affect was depressed but reactive. She denied suicidal ideation or wishes. She denied homicidal ideation. She denied feeling hopeless helpless or worthless. She did not express phobias, ideas reference, paranoid ideation or delusions. Her thinking was abstract and associated foods were coherent, logical and goal directed. She denied hallucinations did not appear to be responding to internal stimuli. DISPOSITION: She will return home to live with her parents and HER-2 young children. Continue duloxetine 30 mg daily, trazodone 50 mg at bedtime and melatonin 5 mg at bedtime. Continue ferrous sulfate 325 mg by mouth 3 times a day. Follow-up with her primary care provider.She has a follow-up appointment 07/10/2020 at 11 PM at [facility]. Patient Condition at Discharge: Stable Plan - Discharge Summary Discharge Rx Participant: No New Discharge Prescriptions: New DULoxetine HCL [Cymbalta] 30 mg PO DAILY #30 capsule. traZODone HCL [Desyrel] 50 mg PO HS #30 tab Ferrous Sulfate [Iron (65 MG Elemental)] 325 mg PO TID-W/MEALS tab Melatonin 5 mg PO HS #30 tablet Discharge Medication List DULoxetine HCL [Cymbalta] 30 mg PO DAILY #30 capsule. 07/03/20 [Rx] Ferrous Sulfate [Iron (65 MG Elemental)] 325 mg PO TID-W/MEALS tab 07/03/20 [Rx] Melatonin 5 mg PO HS #30 tablet 07/03/20 [Rx] traZODone HCL [Desyrel] 50 mg PO HS #30 tab 07/03/20 [Rx] Follow up Appointment(s)/Referral(s): [facility] [Outside] - 07/10/20 1:00 pm (Lilliana James ) Ciro Francisco DO [Primary Care Provider] - 1-2 days Activity/Diet/Wound Care/Special Instructions: Activity and diet as tolerated. Avoid the use of street drugs and alcohol. Take all medications as prescribed. When you are in need of refills on your medications please contact your medical provider and/or outpatient psychiatrist to have this done. Please go to scheduled outpatient appointment for aftercare treatment. If symptoms return or become worse, call the crisis line at and/or go to the nearest emergency room for evaluation. Discharge Disposition: HOME SELF-CARE
== END 2020-07-03 13:47 | disposition home or self-care (01) | DRG 885 ==
LOC: EC 18:14 → 3MHU 20:35
PROVIDERS: ADMIT Psychiatry & Neurology Psychiatry; ATTEND Psychiatry & Neurology Psychiatry
DX: F33.2 Major depressive disorder, recurrent severe without psychotic features (principal); R45.851 Suicidal ideations; Z68.41 Body mass index [BMI] 40.0-44.9, adult; E66.9 Obesity, unspecified; F41.9 Anxiety disorder, unspecified; J45.909 Unspecified asthma, uncomplicated; E61.1 Iron deficiency; D64.9 Anemia, unspecified; Z63.0 Problems in relationship with spouse or partner; Z98.891 History of uterine scar from previous surgery; Z90.89 Acquired absence of other organs; Z88.2 Allergy status to sulfonamides
CPT/HCPCS: 80053; 80061; 80306; 81001; 81025; 82075; 83036; 84443; 85025; 99285